=== PATIENT | female | born 2000 | race Caucasian/White ===

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

== ENCOUNTER 2018-05-01 22:50 | Emergency (ER) | payer OTHER ==
[2018-05-01 22:59] VITALS: BP 130/76
--- NOTE | 2018-05-01 23:15 | ED Physician Documentation ---
PD HPI HEENT - Stated complaint Stated Complaint: SORE THROAT - Chief complaint Chief Complaint: Fever - History obtained from History obtained from: Patient - History of Present Illness Timing - onset: How many days ago (2) Timing - details: Gradual onset Pain level now: 6 Location: Throat Improves: Nothing Worsens: Swalllowing Associated symptoms: Fever (Tmax 102). No: Unable to swallow, Cough Recently seen: Not recently seen - Additional information Additional information: c/o sore throat x 2 days, fever . 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 : None HEENT: None Psych: None Musculoskeletal: None Derm: None - Past Surgical History Past Surgical History: Yes HEENT: Myringotomy (tubes), Tonsil/Adenoidectomy - Present Medications Home Medications: Ambulatory Orders Medication Instructions Recorded Confirmed Amoxicillin 500 mg PO BID #19 capsule 05/01/18 - Allergies Allergies/Adverse Reactions: Allergies Allergy/AdvReac Type Severity Reaction Status Date / Time No Known Drug Allergies Allergy Verified 05/01/18 23:00 - Social History Does the pt smoke?: No Smoking Status: Never smoker Does the pt drink ETOH?: No Does the pt have substance abuse?: No - Immunizations Immunizations are current?: Yes - POLST Patient has POLST: No PD ED PE NORMAL - Vitals Vital signs reviewed: Yes - General General: Alert and oriented X 3, No acute distress, Well developed/nourished - Neck Neck: Supple, no meningeal sign PD ED PE EXPANDED - HEENT HEENT: Pharyngeal erythema, Tonsillar exudate Results - Vitals Vitals: Vital Signs - 24 hr 05/01/18 05/01/18 05/01/18 22:58 23:37 23:44 Temperature 36.8 C Heart Rate 107 H Respiratory 17 17 16 Rate Blood Pressure 130/76 O2 Saturation 98 Oxygen O2 Source Room air - Labs Labs: Laboratory Tests 05/01/18 22:55 Group A Strep Rapid POSITIVE H PD MEDICAL DECISION MAKING - ED course Complexity details: reviewed results, considered differential, d/w patient - Sepsis Event Vital Signs: Vital Signs - 24 hr 05/01/18 05/01/1805/01/18 22:58 23:37 23:44 Temperature 36.8 C Heart Rate 107 H Respiratory 17 17 16 Rate Blood Pressure 130/76 O2 Saturation 98 Oxygen O2 Source Room air Departure - Departure Disposition: 01 Home, Self Care Clinical Impression: Acute streptococcal pharyngitis Condition: Good Instructions: ED Strep Pharyngitis Conf Prescriptions: Amoxicillin 500 mg PO BID #19 capsule Forms: Activity restrictions Discharge Date/Time: 05/01/18 23:46
[2018-05-01] MEDS ORDERED: IBUPROFEN 600 MG TABLET PO STA (23:31)
[2018-05-01] MEDS ORDERED: AMOXICILLIN 250 MG CAPSULE PO STA (23:32)
== END 2018-05-01 23:46 | disposition home or self-care (01) ==
LOC: ED 22:50
DX: J02.0 Streptococcal pharyngitis (principal)
CPT/HCPCS: 87430; 99283; A9270

== ENCOUNTER 2018-08-25 22:59 | Emergency (ER) | payer OTHER ==
[2018-08-25] MEDS ORDERED: ALBUTEROL NEB 2.5 MG/3 ML INH STA (23:24)
--- NOTE | 2018-08-25 23:25 | ED Physician Documentation ---
PD HPI URI - Stated complaint Stated Complaint: WHEEZING,COUGHING - Chief complaint Chief Complaint: Resp - History obtained from History obtained from: Patient - History of Present Illness Timing - onset: How many days ago (3) Timing duration: Days (3) Timing details: Gradual onset Pain level max: 0 Pain level now: 0 Associated symptoms: Fever (102), Nasal congestion, Rhinorrhea, Dry cough, Dyspnea (wheezing tonight) Contributing factors: Sick contact Improves by: Rest Worsened by: Activity, Breathing Recently seen: Not recently seen - Additional information Additional information: Denies any possibility of . Is not currently . 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 CLEANER: None : None HEENT: None Psych: None Musculoskeletal: None Derm: None - Past Surgical History Past Surgical History: Yes HEENT: Myringotomy (tubes), Tonsil/Adenoidectomy - Present Medications Home Medications: Ambulatory Orders Medication Instructions Recorded Confirmed Norethindrone AC-Eth Estradiol 1 tab PO DAILY 08/25/18 08/25/18 [Norethind-Eth Estrad 1-0.02 mg] Albuterol Sulf [Ventolin Hfa 1 - 2 puffs INH Q4HR PRN #1 inhaler 08/26/18 Inhaler] Benzonatate [Tessalon Perle] 100 - 200 mg PO TID PRN #30 capsule 08/26/18 Cetirizine HCl/Pseudoephedrine 1 each PO BID PRN #30 tab.er.12h 08/26/18 [Zyrtec-D Tablet] - Allergies Allergies/Adverse Reactions: Allergies Allergy/AdvReac Type Severity Reaction Status Date / Time No Known Drug Allergies Allergy Verified 08/25/18 23:07 - Social History Does the pt smoke?: No Smoking Status: Never smoker Does the pt drink ETOH?: Yes Does the pt have substance abuse?: No - Immunizations Immunizations are current?: Yes - POLST Patient has POLST: No PD ED PE NORMAL - Vitals Vital signs reviewed: Yes - General General: Alert and oriented X 3, No acute distress - HEENT HEENT: Ears normal, Moist mucous membranes, Pharynx benign - Neck Neck: Supple, no meningeal sign, No adenopathy - Respiratory Respiratory: No respiratory distress, Other (Wheezing bilaterally left greater than right) - Abdomen Abdomen: Soft, Non tender, Non distended - Back Back: No CVA TTP, No spinal TTP - Derm Derm: Warm and dry - Extremities Extremities: No edema, No calf tenderness / cord - Neuro Neuro: Alert and oriented X 3 Results - Vitals Vitals: Vital Signs - 24 hr 08/25/18 23:02 Temperature 36.8 C Heart Rate 91 Respiratory 16 Rate Blood Pressure 135/78 H O2 Saturation 98 Oxygen O2 Source Room air - Rads (name of study) Chest x-ray Radiology: Prelim report reviewed, EMP read contemporaneously, See rad report (No acute disease) PD MEDICAL DECISION MAKING - ED course Complexity details: reviewed results, re-evaluated patient, considered differential, d/w patient ED course: Patient is a 17-year-old female who presents to the emergency department with what appears to be a viral upper respiratory infection. She has wheezing bilaterally, left greater than right, therefore x-ray performed to exclude asymmetric airspace disease or atypical pneumonia. She is well-appearing, nontoxic. Feels better after nebulizer treatment. Will prescribe an inhaler for home. Patient counseled regarding signs and symptoms for which I believe and urgent re-evaluation would be necessary. Patient with good understanding of and agreement to plan and is comfortable going home at this time This document was made in part using voice recognition software. While efforts are made to proofread this document, sound alike and grammatical errors may oc cur. - Sepsis Event Vital Signs: Vital Signs - 24 hr 08/25/18 23:02 Temperature 36.8 C Heart Rate 91 Respiratory 16 Rate Blood Pressure 135/78 H O2 Saturation 98 Oxygen O2 Source Room air Departure - Departure Disposition: 01 Home, Self Care Clinical Impression: Viral URI Condition: Good Instructions: ED URI Viral W Wheezing Follow-Up: CHEMA PINEDA [Primary Care Provider] - As Needed Prescriptions: Albuterol Sulf [Ventolin Hfa Inhaler] 1 - 2 puffs INH Q4HR PRN #1 inhaler PRN Reason: Shortness Of Air/Wheezing Benzonatate [Tessalon Perle] 100 - 200 mg PO TID PRN #30 capsule PRN Reason: Cough Cetirizine HCl/Pseudoephedrine [Zyrtec-D Tablet] 1 each PO BID PRN #30 tab.er.12h PRN Reason: Nasal Congestion Comments: Return if you worsen. Use the inhaler as needed for difficulty breathing. This should improve over the next week. Discharge Date/Time: 08/26/18 00:35
--- NOTE | 2018-08-26 00:14 | XRAY Report ---
Reason: fever, cough Procedure Date: 08/25/2018 Accession Number: [id number] / [id number] Procedure: XR - Chest 2 View X-Ray CPT Code: 59640 FULL RESULT: EXAM: CHEST RADIOGRAPHY EXAM DATE: 08/25/2018 11:52 PM. CLINICAL HISTORY: Fever, cough. COMPARISON: None. TECHNIQUE: 2 views. FINDINGS: Lungs/Pleura: No alveolar consolidation or pleural effusion seen. No pneumothorax. Mediastinum: Heart and mediastinal contours are unremarkable. Other: None. IMPRESSION: 1. No acute abnormality seen in the chest. RADIA
[2018-08-26 00:38] VITALS: BP 132/70
== END 2018-08-26 00:35 | disposition home or self-care (01) ==
LOC: ED 22:59
DX: J06.9 Acute upper respiratory infection, unspecified (principal)
CPT/HCPCS: 71046; 94640; 94664; 99283

== ENCOUNTER 2018-11-06 11:38 | Emergency (ER) | payer OTHER ==
[2018-11-06 12:12] VITALS: BP 112/73
[2018-11-06 12:32] LABS: BILIRUBIN,URINE NEGATIVE (NEGATIVE); GLUCOSE, URINE (UA) NEGATIVE (NEGATIVE); KETONES,URINE (UA) NEGATIVE (NEGATIVE); LEUKOCYTE ESTERASE, URINE SMALL (NEGATIVE); NITRITE,URINE NEGATIVE (NEGATIVE); OCCULT BLOOD,URINE TRACE-INTA (NEGATIVE); PH,URINE 6.5 PH (5.0-7.5); PROTEIN,URINE NEGATIVE (NEGATIVE); UROBILINOGEN,URINE 1 (NORMAL) E.U./dL (NORMAL)
[2018-11-06 12:34] LABS: CLARITY,URINE HAZY (CLEAR)
[2018-11-06 12:35] LABS: HCG UR QUAL NEGATIVE
[2018-11-06 12:49] LABS: BACTERIA,URINE Few /HPF (None Seen); RBC,URINE 0-5 /HPF (0-5); SQUAMOUS EPITHELIAL CELL,UR RARE Squamous (<= Few)
--- NOTE | 2018-11-06 13:57 | ED Physician Documentation ---
PD HPI FEMALE - Stated complaint Stated Complaint: FEM - Chief complaint Chief Complaint: UTI - History obtained from History obtained from: Patient - History of Present Illness Timing - onset: How many weeks ago (1) Timing - details: Still present Associated symptoms: Dysuria, Urinary frequency Similar symptoms before: Diagnosis (History of similar symptoms in the past with urinary tract infection.) - Additional information Additional information: The patient is a 17-year-old female who presents stating, "I think I've had a UTI for the past week." She reports dysuria, frequency of urination, and cloudy urine that has a smelly odor. She reports associated nausea with 2 episodes of vomiting. She denies fever or abdominal pain. Her last menstrual period was about one month ago. Review of Systems Constitutional: denies: Fever Nose: denies: Congestion Throat: reports: Sore throat Respiratory: denies: Cough GI: reports: Nausea, Vomiting. 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 : None HEENT: None Psych: None Musculoskeletal: None Derm: None - Past Surgical History Past Surgical History: Yes HEENT: Myringotomy (tubes), Tonsil/Adenoidectomy - Present Medications Home Medications: Ambulatory Orders Medication Instructions Recorded Confirmed Norethindrone AC-Eth Estradiol 1 tab PO DAILY 08/25/18 08/25/18 [Norethind-Eth Estrad 1-0.02 mg] Albuterol Sulf [Ventolin Hfa 1 - 2 puffs INH Q4HR PRN #1 inhaler 08/26/18 Inhaler] Benzonatate [Tessalon Perle] 100 - 200 mg PO TID PRN #30 capsule 08/26/18 Cetirizine HCl/Pseudoephedrine 1 each PO BID PRN #30 tab.er.12h 08/26/18 [Zyrtec-D Tablet] Nitrofurantoin Monohyd/M-Cryst 100 mg PO BID #10 capsule 11/06/18 [Macrobid 100 mg Capsule] Phenazopyridine HCl [Pyridium] 200 mg PO TID PRN #6 tablet 11/06/18 - Allergies Allergies/Adverse Reactions: Allergies Allergy/AdvReac Type Severity Reaction Status Date / Time No Known Drug Allergies Allergy Verified 11/06/18 12:12 - Social History Does the pt smoke?: No Smoking Status: Never smoker Does the pt drink ETOH?: Yes Does the pt have substance abuse?: No - Immunizations Immunizations are current?: Yes - POLST Patient has POLST: No PD ED PE NORMAL - Vitals Vital signs reviewed: Yes (normal) - General General: Alert and oriented X 3, Well developed/nourished - HEENT HEENT: Atraumatic - Respiratory Respiratory: No respiratory distress - Abdomen Abdomen: Soft, Non tender - Back Back: No CVA TTP - Derm Derm: No rash - Neuro Neuro: Alert and oriented X 3, Normal speech Results - Vitals Vitals: Oxygen O2 Source Room air - Labs Labs: Microbiology 11/06/18 12:15 Urine Culture - Preliminary Urine,Random Escherichia Coli Laboratory Tests 11/06/18 11/06/18 12:15 12:15 Urine Color YELLOW Urine Clarity HAZY Urine pH 6.5 Ur Specific [place] 1.025 1.025 Urine Protein NEGATIVE Urine Glucose (UA) NEGATIVE Urine Ketones NEGATIVE Urine Occult Blood TRACE-INTA Urine Nitrite NEGATIVE Urine Bilirubin NEGATIVE Urine Urobilinogen 1 (NORMAL) Ur Leukocyte Esterase SMALL H Urine RBC 0-5 Urine WBC 11-25 H Ur Squamous Epith Cells RARE Squamous Urine Bacteria Few Ur Microscopic Review INDICATED Urine Culture Comments INDICATED Urine HCG, Qual NEGATIVE PD MEDICAL DECISION MAKING - ED course Complexity details: reviewed results, re-evaluated patient, considered differential, d/w patient, d/w family ED course: The patient's presentation is significant for acute urinary tract infection, which is supported by positive urinalysis. Her presentation does not suggest sepsis or pyelonephritis. Treatment in the emergency department included administration of Macrobid 100 mg orally, and Pyridium 200 mg orally. She is being discharged with prescriptions for both. I discussed with her and her family the expected course of illness, antibiotic treatment and outpatient follow-up, as well as potentially worrisome signs or symptoms that should prompt reevaluation in the emergency department. Departure - Departure Disposition: 01 Home, Self Care Clinical Impression: Urinary tract infection Condition: Stable Instructions: ED UTI Cystitis Female Follow-Up: CHEMA PINEDA [Primary Care Provider] - Prescriptions: Nitrofurantoin Monohyd/M-Cryst [Macrobid 100 mg Capsule] 100 mg PO BID #10 capsule Phenazopyridine HCl [Pyridium] 200 mg PO TID PRN #6 tablet PRN Reason: dysuria Comments: Drink plenty of fluids, including cranberry juice. Take Macrobid twice daily as prescribed. You can use Pyridium as prescribed if needed for painful urination. You can use Tylenol or ibuprofen as needed for fever or discomfort. Follow up with your primary physician within 2 weeks. Call to schedule appointment. Return to the emergency department if you develop increasing abdominal pain, fever with shaking chills, persistent vomiting, or otherwise worsening symptoms. Forms: Activity restrictions Discharge Date/Time: 11/06/18 14:07
[2018-11-06] MEDS: PHENAZOPYRIDINE 100 MG TABLET PO STA (14:02)
[2018-11-06] MEDS: NITROFURANTOIN MACRO 100 MG CAPSULE PO STA (14:02)
== END 2018-11-06 14:07 | disposition home or self-care (01) ==
LOC: ED 11:38
DX: N39.0 Urinary tract infection, site not specified (principal)
CPT/HCPCS: 81001; 81025; 87086; 87181; 99283; A9270; 81003

== ENCOUNTER 2018-11-12 07:38 | Emergency (ER) | payer OTHER ==
[2018-11-12 07:43] VITALS: BP 131/77
[2018-11-12] MEDS ORDERED: IBUPROFEN 600 MG TABLET PO STA (08:19)
--- NOTE | 2018-11-12 08:22 | ED Physician Documentation ---
PD HPI BACK PAIN - Stated complaint Stated Complaint: BACK PX - Chief complaint Chief Complaint: Back Pain - History obtained from History obtained from: Patient - History of Present Illness Timing - onset: Today Timing - duration: Hours (2) Timing - details: Still present Location: Lower Quality: Aching Associated symptoms: No: Fever, Weakness, Numbness, Incontinent of urine Worsened by: Movement, Lifting Contributing factors: Lifting Similar symptoms before: No diagnosis Recently seen: Emergency Dept (Seen here one week ago, treated for UTI.) - Additional information Additional information: The patient is a 17-year-old female who presents with low back pain. 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 The pain is better now, but she continues to have aching in her lower back. She denies numbness or weakness, urinary incontinence, or fever. She reports history of similar pain in her lower back on many days when working at [employer]. She was seen here 1 week ago with urinary tract infection, and was treated with Macrobid. Her symptoms have resolved, and review of her urine culture result reveals growth of E. coli that was sensitive to all antibiotics tested. Review of Systems Constitutional: denies: Fever Nose: denies: Congestion Throat: denies: Sore throat Cardiac: denies: Chest pain / pressure Respiratory: denies: Dyspnea GI: denies: Abdominal Pain, Nausea, Vomiting : denies: Dysuria, Incontinent Skin: denies: Rash Musculoskeletal: reports: Back pain. 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: None : None HEENT: None Psych: None Musculoskeletal: None Derm: None - Past Surgical History Past Surgical History: Yes HEENT: Myringotomy (tubes), Tonsil/Adenoidectomy - Present Medications Home Medications: Ambulatory Orders Medication Instructions Recorded Confirmed Norethindrone AC-Eth Estradiol 1 tab PO DAILY 08/25/18 08/25/18 [Norethind-Eth Estrad 1-0.02 mg] Cyclobenzaprine [Flexeril] 10 mg PO TID PRN #20 tablet 11/12/18 - Allergies Allergies/Adverse Reactions: Allergies Allergy/AdvReac Type Severity Reaction Status Date / Time No Known Drug Allergies Allergy Verified 11/12/18 07:43 - Social History Does the pt smoke?: No Smoking Status: Never smoker Does the pt drink ETOH?: Yes Does the pt have substance abuse?: No - Immunizations Immunizations are current?: Yes - POLST Patient has POLST: No PD ED PE NORMAL - Vitals Vital signs reviewed: Yes (Borderline systolic hypertension initially.) - General General: Alert and oriented X 3, Well developed/nourished - HEENT HEENT: Atraumatic - Neck Neck: No bony TTP - Cardiac Cardiac: RRR - Respiratory Respiratory: No respiratory distress - Abdomen Abdomen: Soft, Non tender - Back Back: No CVA TTP, No spinal TTP, Other (Tenderness to palpation along the paralumbar musculature bilaterally.) - Derm Derm: No rash - Extremities Extremities: No edema, No calf tenderness / cord, Other (Straight leg raise test is negative bilaterally.) - Neuro Neuro: Alert and oriented X 3, No motor deficit, No sensory deficit, Normal speech Results - Vitals Vitals: Oxygen O2 Source Room air PD MEDICAL DECISION MAKING - ED course Complexity details: reviewed old records, considered differential, d/w patient ED course: The patient's presentation is most consistent with lumbar strain. Her presentation does not suggest cauda equina syndrome, epidural abscess, or pyelonephritis. Treatment in the emergency department included administration of ibuprofen 600 mg orally. She is being discharged with prescription for Flexeril. I discussed with her symptomatic treatment, outpatient follow-up, as well as potentially worrisome signs or symptoms that should prompt reevaluation in the emergency department. An L&I form was completed. Departure - Departure Disposition: 01 Home, Self Care Clinical Impression: Lumbar strain Qualifiers: Encounter type: initial encounter Qualified Code(s): S39.012A - Strain of muscle, fascia and tendon of lower back, initial encounter Condition: Stable Instructions: ED Sprain Strain Lumbar Follow-Up: CHEMA PINEDA [Primary Care Provider] - Prescriptions: Cyclobenzaprine [Flexeril] 10 mg PO TID PRN #20 tablet PRN Reason: Spasms Comments: Apply ice pack to your lower back intermittently for the next 3 or 4 days. You can use ibuprofen, up to 600 mg 3 times daily for its anti-inflammatory effect. You can use Flexeril as prescribed if needed for muscle spasms. Follow-up with your primary physician within 1-2 weeks. Call to schedule an appointment. Return to the emergency department if you develop increasing back pain, or otherwise worsening symptoms. Forms: Activity restrictions Discharge Date/Time: 11/12/18 08:32
== END 2018-11-12 08:32 | disposition home or self-care (01) ==
LOC: ED 07:38
DX: S39.012A Strain of muscle, fascia and tendon of lower back, initial encounter (principal); X50.0XXA Overexertion from strenuous movement or load, initial encounter; Y93.F2 Activity, caregiving, lifting; Y92.099 Unspecified place in other non-institutional residence as the place of occurrence of the external cause; Y99.0 Civilian activity done for income or pay
CPT/HCPCS: 1040M; 99283; A9270

== ENCOUNTER 2018-11-18 07:24 | Emergency (ER) | payer OTHER ==
--- NOTE | 2018-11-18 07:29 | ED Physician Documentation ---
History of Present Illness - Stated complaint Stated Complaint: BACK PX - Additonal information Additional information: hx from pt and EMR 17 y/o f 7 ER vists to [facility] in last year per EMR hx back pain seen most recently 4 days ago for back pain after lifting a pt eval c/w low back muscular strain and pt txed with NSAIDS and flexeril also recently seen in ED for UTI and txed with macrobid (which culture was sensitive to) pt states she has been on llight duty for a week her light duty today she is still having back pain no fever no saddle anesthesia no urinary sx no numbness or weakness she does not like the flexeril prescribed last time because it makes her drowsy PMD is at [facility] 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[place] insisted she go directly to the ER again as this is a work related injury and she needs paperwork done Review of Systems Constitutional: denies: Fever Cardiac: denies: Chest pain / pressure Respiratory: denies: Dyspnea GI: denies: Abdominal Pain : denies: Dysuria, Incontinent, Now EGA (neg HCG within last 2 week) Musculoskeletal: reports: Back pain Neurologic: denies: Focal weakness, Numbness Immunocompromised: denies: Immunocompromised PD PAST MEDICAL HISTORY - Past Medical History Cardiovascular: None Respiratory: None Neuro: None Endocrine/Autoimmune: None GI: None 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 : None HEENT: None Psych: None Musculoskeletal: None Derm: None - Past Surgical History Past Surgical History: Yes HEENT: Myringotomy (tubes), Tonsil/Adenoidectomy - Present Medications Home Medications: Ambulatory Orders Medication Instructions Recorded Confirmed Norethindrone AC-Eth Estradiol 1 tab PO DAILY 08/25/18 11/18/18 [Norethind-Eth Estrad 1-0.02 mg] Cyclobenzaprine [Flexeril] 10 mg PO TID PRN #20 tablet 11/12/18 11/18/18 - Allergies Allergies/Adverse Reactions: Allergies Allergy/AdvReac Type Severity Reaction Status Date / Time No Known Drug Allergies Allergy Verified 11/18/18 07:36 - Social History Does the pt smoke?: No Smoking Status: Never smoker Does the pt drink ETOH?: Yes Does the pt have substance abuse?: No - Immunizations Immunizations are current?: Yes - POLST Patient has POLST: No PD ED PE NORMAL - Vitals Vital signs reviewed: Yes - Cardiac Cardiac: RRR - Respiratory Respiratory: No respiratory distress - Abdomen Abdomen: Soft, Non tender, Other (no pulsatile mass) - Back Back: No spinal TTP, Other (soft tissue lumbar mm TTP and limited ROM 2/2 pain, no focal spine TTP redness swelling) - Derm Derm: Normal color - Extremities Extremities: No deformity - Neuro Neuro: Alert and oriented X 3, No motor deficit, No sensory deficit, Other (hip flexion, knee ext foot dorsi plantar and great toe ext all 5/5, nl patellar DDTR 2/4 virgen, nl ankle clonus, neg SLR virgen, denies saddle anesthesia) Results - Vitals Vitals: Vital Signs - 24 hr 11/18/18 07:35 Temperature 36 C L Heart Rate 65 Respiratory 16 Rate Blood Pressure 116/73 O2 Saturation 99 Oxygen O2 Source Room air PD MEDICAL DECISION MAKING - ED course ED course: continued muscular low back pain hx and exam do not suggest epidural abscess cauda equina pyelo etc she does not need a new L&I form comoleted as this is not a new injury did complete COWs return to work with limitations paperwork rec continue motri add lido patches and suggested pt call [facility] [place] to inquire about getting into PT Departure - Departure Disposition: Home, Self Care Clinical Impression: Back pain Qualifiers: Back pain location: low back pain Chronicity: unspecified Back pain laterality: bilateral Sciatica presence: without sciatica Qualified Code(s): M54.5 - Low back pain Condition: Good Instructions: ED Sprain Strain Lumbar Comments: Continue motrin three times a day as previously instructed. May also take tylenol as needed for pain Add lidocaine patches - one patch to be worn up to 12 hr a day, then off 12 hr before apply a new patch Stop the flexeril since it makes you drowsy. Call to inquire about getting into physical therapy. No lifting for another week. Please make an appointment with your PMD at [facility] in one week for a recheck and for ongoing care Forms: Activity restrictions
[2018-11-18 07:37] VITALS: BP 116/73
[2018-11-18] MEDS ORDERED: LIDOCAINE PATCH 5% TOP STA (07:54)
== END 2018-11-18 08:20 | disposition home or self-care (01) ==
LOC: ED 07:24
DX: M54.5 Low back pain (principal)
CPT/HCPCS: 99283; A9270

== ENCOUNTER 2019-02-11 16:15 | Emergency (ER) | payer OTHER ==
--- NOTE | 2019-02-11 16:23 | ED Physician Documentation ---
PD HPI URI - Stated complaint Stated Complaint: SORE THROAT - History obtained from History obtained from: Patient - History of Present Illness Timing - onset: Today Timing duration: Days (1) Timing details: Abrupt onset, Still present Associated symptoms: Chills, Sore throat, Dry cough. No: Nasal congestion, Productive cough Contributing factors: Sick contact (sisters at home currently on abx for confirmed strep.) Review of Systems Constitutional: reports: Chills, Myalgias. denies: Fever Nose: reports: Rhinorrhea / runny nose (for several days, ? allergies) Throat: reports: Sore throat Respiratory: reports: Cough (mild) GI: reports: Nausea. 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 : None HEENT: None Psych: None Musculoskeletal: None Derm: None - Past Surgical History Past Surgical History: Yes HEENT: Myringotomy (tubes), Tonsil/Adenoidectomy - Present Medications Home Medications: Ambulatory Orders Medication Instructions Recorded Confirmed Norethindrone AC-Eth Estradiol 1 tab PO DAILY 08/25/18 02/11/19 [Norethind-Eth Estrad 1-0.02 mg] Amoxicillin 500 mg PO TID #21 capsule 02/11/19 - Allergies Allergies/Adverse Reactions: Allergies Allergy/AdvReac Type Severity Reaction Status Date / Time No Known Drug Allergies Allergy Verified 02/11/19 16:25 - Social History Does the pt smoke?: No Smoking Status: Never smoker Does the pt drink ETOH?: Yes Does the pt have substance abuse?: No - Immunizations Immunizations are current?: Yes - POLST Patient has POLST: No PD ED PE NORMAL - Vitals Vital signs reviewed: Yes - General General: Alert and oriented X 3, No acute distress, Well developed/nourished - HEENT HEENT: No: Pharynx benign (mild redness of tonsils and swelling, without exudate. ) - Neck Neck: Supple, no meningeal sign, Other (mild anterior adenopathy) - Cardiac Cardiac: RRR, No murmur - Respiratory Respiratory: Clear bilaterally Results - Vitals Vitals: Vital Signs - 24 hr 02/11/19 16:23 Temperature 37.1 C Heart Rate 98 Respiratory 14 Rate Blood Pressure 110/64 O2 Saturation 100 Oxygen O2 Source Room air PD MEDICAL DECISION MAKING - ED course Complexity details: considered differential (Given symptoms and current exposure to strep, I would empirically treat as strep.), d/w patient Departure - Departure Disposition: 01 Home, Self Care Clinical Impression: Exposure to strep throat Pharyngitis, acute Qualifiers: Pharyngitis/tonsillitis etiology: streptococcus Qualified Code(s): J02.0 - Streptococcal pharyngitis Condition: Stable Record reviewed to determine appropriate education?: Yes Prescriptions: Amoxicillin 500 mg PO TID #21 capsule Comments: Stay well-hydrated. Tylenol or ibuprofen or naproxen as needed for fevers and pains. Will presume strep throat given your symptoms and exposure to strep in the household. Amoxicillin 3 times a day for a week. Starting the treatment now he will be okay to return to work tomorrow. Forms: Activity restrictions
[2019-02-11 16:25] VITALS: BP 110/64
[2019-02-11] MEDS ORDERED: IBUPROFEN 400 MG TABLET PO STA (16:30)
[2019-02-11] MEDS ORDERED: AMOXICILLIN 250 MG CAPSULE PO STA (16:30)
== END 2019-02-11 16:54 | disposition home or self-care (01) ==
LOC: ED 16:15
DX: J02.0 Streptococcal pharyngitis (principal)
CPT/HCPCS: 99283; A9270

== ENCOUNTER 2019-03-28 12:13 | Emergency (ER) | payer OTHER ==
[2019-03-28] MEDS ORDERED: SODIUM CHLORIDE 0.9% 1,000 ML IV ONE (14:00)
--- NOTE | 2019-03-28 14:04 | ED Physician Documentation ---
PD HPI SYNCOPE - Stated complaint Stated Complaint: VISION CHANGE/LOW SUGAR - Chief complaint Chief Complaint: General - History obtained from History obtained from: Patient - History of Present Illness Witnessed: Witnessed Timing - onset: How many weeks ago (1) Duration: Seconds Preceding symptoms: Headache, Vision changes, Diaphoresis, Abdominal pain, Light headed Associated symptoms: Headache, Vision changes Contributing factors: Decreased PO intake, Emotional upset Injury occurred: None Similar symptoms before: Has not had sx before Recently seen: Surgery - Additional information Additional information: 18-year-old female who has had a termination done about 3 weeks ago has developed lightheadedness and dizziness while at work and she had a syncopal episode about 1 week ago. She relates that she is not drinking or eating as much as usual and is emotionally distraught. 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 She did not injure herself on that episode either. Yesterday the patient had to leave work early as she felt symptoms similar to what she had prior to this and at that time she sat down had some juice and improved. Today she is come into the emergency department not feeling well and she is supposed to work today Review of Systems Constitutional: denies: Fever, Chills Eyes: reports: Other (vision fades with syncopal events normal otherwise). denies: Decreased vision Ears: denies: Ear pain Nose: denies: Rhinorrhea / runny nose, Congestion Throat: denies: Sore throat Cardiac: denies: Chest pain / pressure, Palpitations Respiratory: denies: Dyspnea, Cough GI: denies: Abdominal Pain, Nausea, Vomiting : denies: Dysuria, Frequency Skin: denies: Rash Musculoskeletal: denies: Neck pain, Back pain, Extremity pain Neurologic: reports: Near syncope, Syncope. 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 : None HEENT: None Psych: None Musculoskeletal: None Derm: None - Past Surgical History Past Surgical History: Yes HEENT: Myringotomy (tubes), Tonsil/Adenoidectomy - Present Medications Home Medications: Ambulatory Orders Medication Instructions Recorded Confirmed Norethindrone AC-Eth Estradiol 1 tab PO DAILY 08/25/18 03/28/19 [Norethind-Eth Estrad 1-0.02 mg] - Allergies Allergies/Adverse Reactions: Allergies Allergy/AdvReac Type Severity Reaction Status Date / Time No Known Drug Allergies Allergy Verified 03/28/19 12:47 - Social History Does the pt smoke?: No Smoking Status: Never smoker Does the pt drink ETOH?: Yes Does the pt have substance abuse?: No - Immunizations Immunizations are current?: Yes - POLST Patient has POLST: No PD ED PE NORMAL - Vitals Vital signs reviewed: Yes (normal) - General General: Alert and oriented X 3, No acute distress, Well developed/nourished - HEENT HEENT: Atraumatic, PERRL, EOMI, Other (minimal inflamation to the left TM. Right is with tympanosclerosis without inflamation ) - Neck Neck: Supple, no meningeal sign, No bony TTP - Cardiac Cardiac: RRR, No murmur - Respiratory Respiratory: No respiratory distress, Clear bilaterally - Abdomen Abdomen: Soft, Non tender - Back Back: No CVA TTP, No spinal TTP - Derm Derm: Normal color, Warm and dry, No rash - Extremities Extremities: No deformity, No edema - Neuro Neuro: Alert and oriented X 3, fire control mechanic 2-12 intact, No motor deficit, No sensory deficit, Normal speech Eye Opening: Spontaneous Motor: Obeys Commands Verbal: Oriented GCS Score: 15 - Psych Psych: Normal mood, Normal affect Results - Vitals Vitals: Vital Signs - 24 hr 03/28/19 03/28/19 12:40 14:17 Temperature 36.7 C Heart Rate 71 70 Respiratory 16 14 Rate Blood Pressure 115/74 124/73 O2 Saturation 99 98 Oxygen O2 Source Room air - Labs Labs: Laboratory Tests 03/28/19 03/28/19 03/28/19 14:30 14:30 14:42 WBC 6.7 RBC 4.32 Hgb 12.9 Hct 38.9 MCV 89.9 MCH 29.9 MCHC 33.2 RDW 12.7 Plt Count 291 MPV 8.5 Neut # (Auto) 3.7 Lymph # (Auto) 2.3 [place] # (Auto) 0.3 Eos # (Auto) 0.3 Baso # (Auto) 0.1 Absolute Nucleated RBC 0.00 Nucleated RBC % 0.0 Sodium 136 Potassium 3.9 Chloride 100 L Carbon Dioxide 24 Anion Gap 12.0 BUN 7 Creatinine 0.7 Estimated GFR (MDRD) 107 Glucose 77 Calcium 9.2 Total Bilirubin 0.9 AST 22 ALT 11 Alkaline Phosphatase 54 Total Protein 7.5 Albumin 3.9 Globulin 3.6 Albumin/Globulin Ratio 1.1 Lipase 28 Urine Color YELLOW Urine Clarity CLEAR Urine pH 8.0 H Ur Specific [place] 1.010 Urine Protein NEGATIVE Urine Glucose (UA) NEGATIVE Urine Ketones NEGATIVE Urine Occult Blood NEGATIVE Urine Nitrite NEGATIVE Urine Bilirubin NEGATIVE Urine Urobilinogen 0.2 (NORMAL) Ur Leukocyte Esterase NEGATIVE Ur Microscopic Review NOT INDICATED Urine Culture Comments NOT INDICATED Procedures - IVC sono (time) 1400 Bedside IVC sono: IVC measures (cm) (1.27), IVC collapsed c insp (cm) (complete), Dehydration (est 1 liter deficit) PD MEDICAL DECISION MAKING - ED course Complexity details: considered differential, d/w patient ED course: 18-year-old female with 3 episodes of syncope and near syncope is found to be dehydrated on interrogation the inferior vena cava. She is administered intravenous saline. Departure - Departure Disposition: 01 Home, Self Care Clinical Impression: Dehydration determined by examination Condition: Stable Instructions: ED Dehydration Follow-Up: CHEMA PINEDA [Primary Care Provider] - Forms: Activity restrictions
[2019-03-28 14:41] LABS: BASOPHILS # (AUTO) 0.1 10^3/uL (0.0-0.1); BASOPHILS % (AUTO) 1.7 %; EOSINOPHILS # (AUTO) 0.3 10^3/uL (0.0-0.7); EOSINOPHILS % (AUTO) 4.2 %; HGB - HEMOGLOBIN 12.9 g/dL (12.0-16.0); LYMPHOCYTES # (AUTO) 2.3 10^3/uL (1.5-3.5); LYMPHOCYTES % (AUTO) 34.8 %; MEAN CORPUSCULAR HEMOGLOBIN 29.9 pg (27.0-31.0); MEAN CORPUSCULAR HGB CONC 33.2 g/dL (32.0-36.0); MEAN CORPUSCULAR VOLUME 89.9 fL (81.0-99.0); MEAN PLATELET VOLUME 8.5 fL (7.9-10.8); MONOCYTES # (AUTO) 0.3 10^3/uL (0.0-1.0); MONOCYTES % (AUTO) 4.2 %; NEUTROPHILS # (AUTO) 3.7 10^3/uL (1.5-6.6); NEUTROPHILS % (AUTO) 55.1 %; PLT - PLATELET COUNT 291 10^3/uL (130-450); RED BLOOD COUNT 4.32 10^6/uL (4.20-5.40); RED CELL DISTRIBUTION WIDTH 12.7 % (12.0-15.0); WHITE BLOOD COUNT 6.7 x10^3/uL (4.8-10.8)
[2019-03-28 14:47] LABS: BILIRUBIN,URINE NEGATIVE (NEGATIVE); GLUCOSE, URINE (UA) NEGATIVE (NEGATIVE); KETONES,URINE (UA) NEGATIVE (NEGATIVE); LEUKOCYTE ESTERASE, URINE NEGATIVE (NEGATIVE); NITRITE,URINE NEGATIVE (NEGATIVE); OCCULT BLOOD,URINE NEGATIVE (NEGATIVE); PROTEIN,URINE NEGATIVE (NEGATIVE); UROBILINOGEN,URINE 0.2 (NORMAL) E.U./dL (NORMAL)
[2019-03-28 14:48] LABS: CLARITY,URINE CLEAR (CLEAR)
[2019-03-28 14:53] LABS: ALBUMIN 3.9 g/dL (3.2-5.5); ALBUMIN/GLOBULIN RATIO 1.1 (1.0-2.2); BILIRUBIN,TOTAL 0.9 mg/dL (0.2-1.0); CALCIUM 9.2 mg/dL (8.5-10.3); CREATININE 0.7 mg/dL (0.4-1.0); TOTAL PROTEIN 7.5 g/dL (6.7-8.2)
[2019-03-28 15:51] VITALS: BP 126/78
== END 2019-03-28 15:51 | disposition home or self-care (01) ==
LOC: ED 12:13
DX: E86.0 Dehydration (principal); Z98.890 Other specified postprocedural states
CPT/HCPCS: 36415; 80053; 81001; 81003; 83690; 85025; 87086; 96360; 99283; 99284

== ENCOUNTER 2019-10-12 18:33 | Emergency (ER) | payer OTHER ==
[2019-10-12 19:11] LABS: BASOPHILS % (AUTO) 0.5 %; EOSINOPHILS # (AUTO) 0.2 10^3/uL (0.0-0.7); HGB - HEMOGLOBIN 12.3 g/dL (12.0-16.0); LYMPHOCYTES % (AUTO) 26.4 %; MEAN CORPUSCULAR HEMOGLOBIN 30.4 pg (27.0-31.0); MEAN CORPUSCULAR HGB CONC 33.3 g/dL (32.0-36.0); MEAN CORPUSCULAR VOLUME 91.1 fL (81.0-99.0); MEAN PLATELET VOLUME 10.2 fL (7.9-10.8); MONOCYTES # (AUTO) 0.5 10^3/uL (0.0-1.0); NEUTROPHILS # (AUTO) 4.9 10^3/uL (1.5-6.6); NEUTROPHILS % (AUTO) 64.7 %; PLT - PLATELET COUNT 264 10^3/uL (130-450); RED BLOOD COUNT 4.05 10^6/uL (4.20-5.40); RED CELL DISTRIBUTION WIDTH 12.1 % (12.0-15.0); WHITE BLOOD COUNT 7.6 x10^3/uL (4.8-10.8)
[2019-10-12 19:12] LABS: BILIRUBIN,URINE NEGATIVE (NEGATIVE); GLUCOSE, URINE (UA) NEGATIVE (NEGATIVE); KETONES,URINE (UA) NEGATIVE (NEGATIVE); LEUKOCYTE ESTERASE, URINE NEGATIVE (NEGATIVE); NITRITE,URINE NEGATIVE (NEGATIVE); OCCULT BLOOD,URINE NEGATIVE (NEGATIVE); PH,URINE 6.5 PH (5.0-7.5); PROTEIN,URINE NEGATIVE (NEGATIVE); UROBILINOGEN,URINE 0.2 (NORMAL) E.U./dL (NORMAL)
[2019-10-12 19:15] LABS: CLARITY,URINE CLEAR (CLEAR); HCG UR QUAL NEGATIVE
[2019-10-12 19:24] LABS: ALBUMIN 3.8 g/dL (3.2-5.5); ALBUMIN/GLOBULIN RATIO 1.2 (1.0-2.2); BILIRUBIN,TOTAL 0.5 mg/dL (0.2-1.0); CALCIUM 9.2 mg/dL (8.5-10.3); CREATININE 0.7 mg/dL (0.4-1.0); TOTAL PROTEIN 6.9 g/dL (6.7-8.2)
--- NOTE | 2019-10-12 19:36 | ED Physician Documentation ---
PD HPI ABD PAIN - Stated complaint Stated Complaint: AB PX - Chief complaint Chief Complaint: Abd Pain - History obtained from History obtained from: Patient - History of Present Illness Timing - onset: Other (Healthy 18-year-old woman with no history of abdominal surgeries had relatively sudden onset right pelvic pain starting at 2:30 PM today. Kind of comes and goes. Declines pain medication. Last menses started September 27. She is sexually active with a single partner. No concern for STDs.) Review of Systems Constitutional: reports: Reviewed and negative Cardiac: reports: Reviewed and negative Respiratory: reports: Reviewed and negative PD PAST MEDICAL HISTORY - Past Medical History Cardiovascular: None Respiratory: None Neuro: None Endocrine/Autoimmune: None GI: None SPACE AND MISSILE OPERATIONS SPACELIFT: None : None HEENT: None Psych: None Musculoskeletal: None Derm: None - Past Surgical History Past Surgical History: Yes /SPACE AND MISSILE OPERATIONS SPACELIFT: Dilation and currettage HEENT: Myringotomy (tubes), Tonsil/Adenoidectomy - Present Medications Home Medications: Ambulatory Orders Medication Instructions Recorded Confirmed Norethindrone AC-Eth Estradiol 1 tab PO DAILY 08/25/18 03/28/19 [Norethind-Eth Estrad 1-0.02 mg] - Allergies Allergies/Adverse Reactions: Allergies Allergy/AdvReac Type Severity Reaction Status Date / Time No Known Drug Allergies Allergy Verified 10/12/19 18:38 - Social History Does the pt smoke?: No Smoking Status: Never smoker Does the pt drink ETOH?: Yes Does the pt have substance abuse?: No - Immunizations Immunizations are current?: Yes - POLST Patient has POLST: No PD ED PE NORMAL - Vitals Vital signs reviewed: Yes - General General: Alert and oriented X 3, No acute distress - HEENT HEENT: PERRL, EOMI - Neck Neck: Supple, no meningeal sign, No bony TTP - Cardiac Cardiac: RRR, No murmur - Respiratory Respiratory: No respiratory distress, Clear bilaterally - Abdomen Abdomen: Normal bowel sounds, Soft, Other (Tender in the right pelvic area, inferior and medial to McBurney's point) - Back Back: No CVA TTP, No spinal TTP - Derm Derm: Normal color, Warm and dry - Extremities Extremities: No edema, No calf tenderness / cord - Neuro Neuro: Alert and oriented X 3, Normal speech Results - Vitals Vitals: Vital Signs - 24 hr 10/12/19 10/12/19 18:39 21:35 Temperature 36.8 C Heart Rate 66 68 Respiratory 16 18 Rate Blood Pressure 98/59 L 104/66 O2 Saturation 100 98 Oxygen O2 Source Room air - Labs Labs: Laboratory Tests 10/12/19 10/12/19 10/12/19 17:04 17:04 18:48 WBC 7.6 RBC 4.05 L Hgb 12.3 Hct 36.9 L MCV 91.1 MCH 30.4 MCHC 33.3 RDW 12.1 Plt Count 264 MPV 10.2 Neut # (Auto) 4.9 Lymph # (Auto) 2.0 Darke # (Auto) 0.5 Eos # (Auto) 0.2 Baso # (Auto) 0.0 Absolute Nucleated RBC 0.00 Nucleated RBC % 0.0 Sodium 137 Potassium 3.5 Chloride 102 Carbon Dioxide 29 Anion Gap 6.0 BUN 8 Creatinine 0.7 Estimated GFR (MDRD) 107 Glucose 94 Calcium 9.2 Total Bilirubin 0.5 AST 18 ALT 10 Alkaline Phosphatase 59 Total Protein 6.9 Albumin 3.8 Globulin 3.1 Albumin/Globulin Ratio 1.2 Lipase 56 H Urine Color YELLOW Urine Clarity CLEAR Urine pH 6.5 Ur Specific [place] 1.015 Urine Protein NEGATIVE Urine Glucose (UA) NEGATIVE Urine Ketones NEGATIVE Urine Occult Blood NEGATIVE Urine Nitrite NEGATIVE Urine Bilirubin NEGATIVE Urine Urobilinogen 0.2 (NORMAL) Ur Leukocyte Esterase NEGATIVE Ur Microscopic Review NOT INDICATED Urine Culture Comments NOT INDICATED Urine HCG, Qual NEGATIVE PD MEDICAL DECISION MAKING - ED course ED course: 18-year-old woman presents with sudden onset right lower quadrant pain, down in the pelvis most consistent with a ruptured ovarian cyst. Cyst no longer seen on ultrasound but notable for some free fluid, probably completely ruptured cyst. She declined pain medication. Departure - Departure Disposition: 01 Home, Self Care Clinical Impression: Rupture of cyst of right ovary Condition: Good Record reviewed to determine appropriate education?: Yes Instructions: ED Cyst Ovarian Comments: Call your doctor to arrange a follow-up appointment, make the next available appointment. In the interim, return anytime if worse or if new symptoms develop.
--- NOTE | 2019-10-12 22:07 | Ultrasound Report ---
Reason: pelvic pain, R Procedure Date: 10/12/2019 Accession Number: [id number] / [id number] Procedure: US - Pelvic w/Transvag+Doppler Comp CPT Code: Final Report FULL RESULT: EXAM: PELVIC ULTRASOUND WITH DOPPLERS CLINICAL HISTORY: Right pelvic pain. COMPARISON: None. TECHNIQUE: Realtime transabdominal imaging performed to identify the uterus and adnexa and as an overview of other pelvic structures, followed by transvaginal imaging for better assessment of the endometrium and adnexa, with static image documentation. Color flow imaging and Doppler spectral analysis was performed to evaluate blood flow to the ovaries given pelvic pain and clinical concern for ovarian torsion. FINDINGS: Uterus: 6.9 x 3.8 x 3.5 cm, volume 47.9 cc. Anteverted position. Normal overall size and echotexture. Masses: None. Endometrium: 7 mm. Normal. Cervix: Unremarkable. Right Ovary: 3.5 x 2.8 x 2.9 cm, volume 14.8 cc. Normal echotexture. Arterial and venous blood flow are present. PSV 10 cm/sec. RI 0.61. Adnexa are unremarkable. Left Ovary: 3.3 x 2.7 x 2.6 cm, volume 12.1 cc. Normal echotexture. Arterial and venous blood flow are present. PSV 10.2 cm/sec. RI 0.55. Adnexa are unremarkable. Free Fluid: Moderate amount. Other: None. IMPRESSION: 1. Free fluid in the pelvis, otherwise unremarkable pelvic ultrasound. 2. Arterial and venous blood flow are present to the ovaries bilaterally. RADIA
[2019-10-12 22:28] VITALS: BP 110/68
== END 2019-10-12 22:27 | disposition home or self-care (01) ==
LOC: ED 18:33
DX: N83.201 Unspecified ovarian cyst, right side (principal)
CPT/HCPCS: 36415; 76830; 76856; 80053; 81001; 81003; 81025; 83690; 85025; 87086; 93975; 99282

== ENCOUNTER 2020-11-24 11:15 | Outpatient (CLI) | payer MEDICAID, OTHER ==
[2020-11-24 16:53] LABS: MUDS CUTOFF CONCENTRATIONS CUTOFF CONC BELOW:
[2020-11-24 17:26] LABS: BILIRUBIN,URINE NEGATIVE (NEGATIVE); GLUCOSE, URINE (UA) NEGATIVE (NEGATIVE); KETONES,URINE (UA) NEGATIVE (NEGATIVE); LEUKOCYTE ESTERASE, URINE NEGATIVE (NEGATIVE); NITRITE,URINE NEGATIVE (NEGATIVE); OCCULT BLOOD,URINE NEGATIVE (NEGATIVE); PH,URINE 5.5 PH (5.0-7.5); PROTEIN,URINE NEGATIVE (NEGATIVE); UROBILINOGEN,URINE 0.2 (NORMAL) E.U./dL (NORMAL)
[2020-11-24 17:33] LABS: CLARITY,URINE CLOUDY (CLEAR)
[2020-11-24 17:44] LABS: BACTERIA,URINE None Seen /HPF (None Seen); RBC,URINE None Seen /HPF (0-5); SQUAMOUS EPITHELIAL CELL,UR RARE Squamous (<= Few)
[2020-11-24 17:45] LABS: AMORPHOUS SEDIMENT,UR Moderate /LPF; AMPHETAMINE SCREEN,URINE NEGATIVE (NEGATIVE); BENZODIAZEPINES SCREEN, URINE NEGATIVE (NEGATIVE); COCAINE SCREEN URINE NEGATIVE (NEGATIVE); METHADONE SCREEN, URINE NEGATIVE (NEGATIVE); METHAMPHETAMINES SCREEN, URINE NEGATIVE (NEGATIVE); OPIATE SCREEN, URINE NEGATIVE (NEGATIVE); OXYCODONE SCREEN, URINE NEGATIVE (NEGATIVE); PROPOXYPHENE SCREEN, URINE NEGATIVE (NEGATIVE); TRICYCLIC ANTIDEPRESSANT,URINE NEGATIVE (NEGATIVE)
== END 2020-11-24 23:59 | disposition home or self-care (01) ==
LOC: LAB.N 11:15
PROVIDERS: ATTEND Obstetrics & Gynecology
DX: Z32.01 Encounter for pregnancy test, result positive (principal)
CPT/HCPCS: 80306; 81001; 87086

== ENCOUNTER 2020-12-08 16:18 | Outpatient (CLI) | payer MEDICAID ==
--- NOTE | 2020-12-08 17:20 | Ultrasound Report ---
PROCEDURE: OB First Trimester INDICATIONS: +PREG TEST OUTSIDE/PRIOR DATING DATA: Last menstrual period (LMP): 09/28/2020. LMP-based estimated date of delivery (LEE): 07/05/2021. First dating scan (date and location): This study. Estimated date of delivery (LEE) from first dating scan: 07/16/2021, +/- 5 days. TECHNIQUE: Real-time scanning was performed of the fetus and maternal pelvic organs, with image documentation. COMPARISON: None FINDINGS: There is a single living intrauterine gestation which measures 2 cm in length correlated w ith a gestational age of 8 weeks 4 days and a heart rate of 182 bpm. Embryo: cardiac activity is observed. There is a small perigestational hemorrhage found superi or to the gestational sac measuring 2.3 x 5.0 x 2.7 cm.. Measurement variability in dating: +/- 4 weeks by LMP, +/- 7 days by mean sac diameter (use before 6 weeks gestation if crown-rump length not able to be measured), +/- 5 days by crown-rump length (6-12 weeks gestation). Maternal organs: Ovaries normal considering gestational status. IMPRESSION: Single living intrauterine gestation with current estimated gestational age of 8 weeks 4 days and wit h delivery projected to be centered on 07/16/2021. Small perigestational hemorrhage is noted. Reviewed by: Edy Wilson MD on 12/08/2020 5:18 PM PST Approved by: Edy Wilson MD on 12/08/2020 5:18 PM PST Station ID: [id number]
== END 2020-12-08 16:19 | disposition home or self-care (01) ==
LOC: DI 16:18
PROVIDERS: ATTEND Obstetrics & Gynecology
DX: O46.8X1 Other antepartum hemorrhage, first trimester (principal); Z3A.08 8 weeks gestation of pregnancy

== ENCOUNTER 2020-12-11 09:20 | Outpatient (CLI) | payer MEDICAID ==
[2020-12-11 09:57] LABS: BASOPHILS % (AUTO) 0.4 %; EOSINOPHILS # (AUTO) 0.1 10^3/uL (0.0-0.7); HGB - HEMOGLOBIN 11.8 g/dL (12.0-16.0); LYMPHOCYTES # (AUTO) 2.1 10^3/uL (1.5-3.5); LYMPHOCYTES % (AUTO) 28.6 %; MEAN CORPUSCULAR HEMOGLOBIN 31.1 pg (27.0-31.0); MEAN CORPUSCULAR HGB CONC 34.7 g/dL (32.0-36.0); MEAN CORPUSCULAR VOLUME 89.5 fL (81.0-99.0); MEAN PLATELET VOLUME 9.5 fL (7.9-10.8); MONOCYTES # (AUTO) 0.3 10^3/uL (0.0-1.0); MONOCYTES % (AUTO) 3.6 %; NEUTROPHILS # (AUTO) 4.8 10^3/uL (1.5-6.6); NEUTROPHILS % (AUTO) 66.3 %; PLT - PLATELET COUNT 256 10^3/uL (130-450); RED CELL DISTRIBUTION WIDTH 11.9 % (12.0-15.0); WHITE BLOOD COUNT 7.2 x10^3/uL (4.8-10.8)
[2020-12-12 10:06] LABS: HEPATITIS B SURFACE ANTIGEN NON-REACTIVE (NON-REACTIVE)
[2020-12-12 12:37] LABS: HEPATITIS C ANTIBODY NON-REACTIVE (NON-REACTIVE)
[2020-12-12 14:57] LABS: HIV AG/AB 4TH GEN NON-REACTIVE (NON-REACTIVE)
== END 2020-12-11 09:21 | disposition home or self-care (01) ==
LOC: LAB 09:20
PROVIDERS: ATTEND Advanced Practice Midwife
DX: Z34.90 Encounter for supervision of normal pregnancy, unspecified, unspecified trimester (principal); Z36.89 Encounter for other specified antenatal screening
CPT/HCPCS: 36415; 81599; 85025; 86592; 86762; 86787; 86803; 86850; 86900; 86901; 87340; 87389

== ENCOUNTER 2020-12-29 08:11 | Emergency (ER) | payer MEDICAID ==
[2020-12-29 08:28] VITALS: BP 116/68
--- NOTE | 2020-12-29 08:46 | ED Physician Documentation ---
History of Present Illness - Stated complaint Stated Complaint: SOAR THOAT/HEAD PX - Chief complaint Chief Complaint: Heent - History obtained from History obtained from: Patient - Additonal information Additional information: 20-year-old woman, previously healthy, currently at 11 weeks gestational age presents with sore throat progressively worsening over the past 3 to 4 days, constant, aching, worse with cough which is nonproductive, associated with mild frontal tension type headache, nasal congestion. Patient had 2 - Covid test this week. She does not have fevers, denies sick contacts or recent travel. Denies shortness of breath or chest pain. Review of Systems Ten Systems: 10 systems reviewed and negative Constitutional: denies: Fever, Chills, Myalgias Nose: reports: Congestion Throat: reports: Sore throat Cardiac: denies: Chest pain / pressure Respiratory: reports: Cough. denies: Dyspnea PD PAST MEDICAL HISTORY - Past Medical History Cardiovascular: None Respiratory: None Neuro: None Endocrine/Autoimmune: None GI: None MILL TENDER: None : None HEENT: None Psych: None Musculoskeletal: None Derm: None - Past Surgical History Past Surgical History: Yes /MILL TENDER: Dilation and currettage HEENT: Myringotomy (tubes), Tonsil/Adenoidectomy - Present Medications Home Medications: Ambulatory Orders Medication Instructions Recorded Confirmed Pnv No.95/Ferrous Fum/Folic AC 12/29/20 [ [place]] - Allergies Allergies/Adverse Reactions: Allergies Allergy/AdvReac Type Severity Reaction Status Date / Time No Known Drug Allergies Allergy Verified 12/29/20 08:28 - Social History Does the pt smoke?: No Smoking Status: Never smoker Does the pt drink ETOH?: Yes Does the pt have substance abuse?: No - Immunizations Immunizations are current?: Yes - POLST Patient has POLST: No PD ED PE NORMAL - Vitals Vital signs reviewed: Yes - General General: Alert and oriented X 3, No acute distress - HEENT HEENT: Atraumatic, PERRL, EOMI, Moist mucous membranes, Other (L tonsillar white exudate. ) - Neck Neck: Other (tender ant cerv LAD) - Cardiac Cardiac: RRR - Respiratory Respiratory: No respiratory distress, Clear bilaterally - Abdomen Abdomen: Non tender, Non distended - Female Female : Deferred - Rectal Rectal: Deferred - Back Back: No CVA TTP - Derm Derm: Normal color - Extremities Extremities: No deformity - Neuro Neuro: Alert and oriented X 3 - Psych Psych: Normal mood, Normal affect Results - Vitals Vitals: Vital Signs - 24 hr 12/29/20 08:24 Temperature 36.8 C Heart Rate 98 Respiratory 18 Rate Blood Pressure 116/68 O2 Saturation 99 Oxygen O2 Source Room air - Labs Labs: Laboratory Tests 12/29/20 08:15 Group A Strep Rapid Negative PD MEDICAL DECISION MAKING - ED course ED course: 20-year-old woman G2, P0 at 11 weeks gestational age presents with URI symptoms for the past 3 to 4 days, Centor criteria 2. Strep negative. This appears to be a viral infection. Symptomatic care discussed. Strict return precautions given. Patient will follow up with her primary doctor and her OB. Departure - Departure Disposition: 01 Home, Self Care Clinical Impression: Sore throat, Tension headache, Cough Condition: Good Instructions: ED URI Viral Comments: You were seen in the emergency department for a viral upper respiratory infection. Your strep test was negative. Make sure to hydrate well, get lots of rest, and use a humidifier at the bedside at night. Return to the emergency department if you have any new or worsening symptoms or other concerns. Follow- up with your primary doctor and your ob. Forms: Activity restrictions
[2020-12-29 08:51] LABS: RAPID STREP SCREEN Negative (Negative)
--- NOTE | 2021-01-01 18:22 | ED Physician Documentation ---
ED Addendum - Addendum Addendum: 01/01/21 18:22 Throat culture was received and reviewed. Will place on penicillin VK, 500 mg p.o. every 6 hours x10 days, dispense #40. No refills. Information given to culture nurse at 1820 on 01/01.
== END 2020-12-29 09:25 | disposition home or self-care (01) ==
LOC: ED 08:11
DX: O99.891 Other specified diseases and conditions complicating pregnancy (principal); J02.9 Acute pharyngitis, unspecified; G44.209 Tension-type headache, unspecified, not intractable; R05 Cough; Z3A.11 11 weeks gestation of pregnancy
CPT/HCPCS: 87070; 87077; 87430; 99283; 99284

== ENCOUNTER 2021-01-08 08:00 | Outpatient (CLI) | payer MEDICAID ==
[2021-01-08 17:32] LABS: BILIRUBIN,URINE NEGATIVE (NEGATIVE); GLUCOSE, URINE (UA) NEGATIVE (NEGATIVE); KETONES,URINE (UA) NEGATIVE (NEGATIVE); LEUKOCYTE ESTERASE, URINE MODERATE (NEGATIVE); NITRITE,URINE NEGATIVE (NEGATIVE); OCCULT BLOOD,URINE NEGATIVE (NEGATIVE); PROTEIN,URINE NEGATIVE (NEGATIVE); UROBILINOGEN,URINE 0.2 (NORMAL) E.U./dL (NORMAL)
[2021-01-08 17:39] LABS: AMORPHOUS SEDIMENT,UR Few /LPF; BACTERIA,URINE Few /HPF (None Seen); CLARITY,URINE SL. CLOUDY (CLEAR); MUCUS,URINE Few Strands; RBC,URINE 0-5 /HPF (0-5); SQUAMOUS EPITHELIAL CELL,UR FEW Squamous (<= Few)
[2021-01-08 20:58] LABS: CANDIDA GROUP DNA POSITIVE (NEGATIVE); CANDIDA KRUSEI DNA NEGATIVE (NEGATIVE); TRICHOMONAS VAGINALIS DNA NEGATIVE (NEGATIVE)
== END 2021-01-08 23:59 | disposition home or self-care (01) ==
LOC: LAB.R 08:00
PROVIDERS: ATTEND Advanced Practice Midwife
DX: N76.0 Acute vaginitis (principal)
CPT/HCPCS: 81001; 87086; 87661; 87801